=== PATIENT | male | born 1965 | race Caucasian/White ===

== ENCOUNTER → 2018-09-12 08:39 | Day surgery (SDC) | payer BC ==
[~2018-09-12 08:39] MED LIST: Buffered Lidocaine 1% SYRIN* 1 ML/SYRINGE INTRADERM ONE; Bupivacaine 0.25% SDV PF* 10 ML VIAL INJ ONE; Lactated Ringers 1000 ML Bag* 1,000 ML IV SCH; Midazolam* 1 MG/ML 5 ML VIAL (5 MG) ONE; fentaNYL* 50 MCG/ML 2 ML VIAL (100 MCG VIAL) ONE
[2018-09-12 10:56] VITALS: BP 113/88
--- NOTE | 2018-09-12 21:17 | OP ---
DATE OF OPERATION: 09/12/18 - [facility] DATE OF : 65 SURGEON: Stiven Gray MD PEDIATRIC SOCIAL WORKER: JOSIANE Hernandez ANESTHESIOLOGIST: Dr. Aggarwal. ANESTHESIA: Local MAC. PRE-OP DIAGNOSIS: Left long chronic trigger finger and flexor tenosynovitis. POST-OP DIAGNOSIS: Left long chronic trigger finger and flexor tenosynovitis. OPERATIVE PROCEDURE: Left long trigger finger release of A1 shivani with flexor tenosynovectomy. ESTIMATED BLOOD LOSS: 2 mL. COMPLICATIONS: None. FINDINGS: See above and below. DESCRIPTION OF PROCEDURE: Colin was seen in the preoperative holding area. The correct site, side, and procedure were identified. We came back to the operating room where I infiltrated the operative area with 0.25% plain Marcaine. The arm was then prepped and draped in the usual fashion. The arm was exsanguinated with the Esmarch and the tourniquet was inflated to 250 mmHg. I made a 1-cm oblique incision in the distal palmar crease over the left middle finger A1 shivani. Dissection was carried down and full-thickness flaps were bluntly raised off of the flexor tendon sheath. There was some palmar fascial bands that were released. I then incised the A1 shivani along the radial third longitudinally. There was abundant tenosynovitis, this was all excised. Once I had the tendons nice and clean and the A1 shivani completely released, I had was able to flex the finger down and open the hand multiple times. He could make a fist which he had not been able to do for some time and he was able to fully open the hand without any catching. I, therefore did not think we needed to excise the slip of the tendon. We irrigated out the wound. The skin was closed with 4-0 nylon suture. Wounds were dressed with soft dressings. He was taken to the recovery room in stable condition. [id number]/[facility] #: [id number] MTDD
== END | disposition home or self-care (01) ==
LOC: OREAST 08:39
PROVIDERS: ATTEND Orthopaedic Surgery Hand Surgery
DX: M65.332 Trigger finger, left middle finger (principal); Z87.891 Personal history of nicotine dependence
CPT/HCPCS: J2250; J3010; J3490

== ENCOUNTER → 2018-09-30 05:48 | Day surgery (SDC) | payer BC ==
[~2018-09-30 05:48] MED LIST changes: +Acetaminophen TAB* 325 MG PO PRN; -Bupivacaine 0.25% SDV PF* 10 ML VIAL INJ ONE; +DiMENhydriNATE IV* 50 MG/ML VIAL IV PUSH PRN; +Famotidine IV* 10 MG/ML 2 ML (20 mg) IV ONE; +Famotidine IV* 10 MG/ML 2 ML (20 mg) ONE; +Ketorolac INJ* 30 MG/ML 1 ML VIAL ONE; +Lidocaine 2% PF * 5 ML VIAL ONE; +Naloxone* 0.4 MG/ML 1 ML VIAL IV PRN; +Ondansetron INJ* 2 MG/ML VIAL ONE; +Propofol* 10 MG/ML 20 ML BTL ONE; +ROPIVACAINE 5 MG/ML 30 ML BTL (0.5%) ONE; +Ropivacaine* 2 MG/ML 20 ML VIAL (0.2%) ONE; +oxyCODONE TAB* 5 MG TAB PO PRN
[2018-09-30 08:43] VITALS: BP 117/73
--- NOTE | 2018-09-30 09:13 | OP ---
DATE OF OPERATION: 09/30/18 - [facility] DATE OF : 65 SURGEON: Stiven Gray MD TESTER [employer]: JOSIANE Hernandez ANESTHESIOLOGIST: Dr. Romero. ANESTHESIA: Local MAC. PRE-OP DIAGNOSIS: Right chronic middle trigger finger. POST-OP DIAGNOSIS: Right chronic middle trigger finger. OPERATIVE PROCEDURE: Right chronic middle trigger release at the A1 shivani. INDICATIONS: Colin has the aforementioned trigger finger. We had talked about risks and benefits. He had wanted to proceed with surgery. He is doing well with left middle trigger release. ESTIMATED BLOOD LOSS: 1 mL. COMPLICATIONS: None. FINDINGS: See below. DESCRIPTION OF PROCEDURE: Colin was seen in the preoperative holding area. The correct side, site, and procedure were identified. We came back to the operating room and after a time-out, I infiltrated the operative area with 0.5% ropivacaine. The arm was then prepped and draped in the usual fashion and the time-out was performed. The arm was exsanguinated with the Esmarch and the tourniquet inflated to 250 mmHg. I made a 1 cm incision in the distal palmar crease over the middle finger A1 shivani. The full-thickness flaps were raised off the shivani, mostly bluntly. The A1 shivani was then released longitudinally along the radial third. Immediately noted was quite a bit of fraying and degeneration of the FDS tendon. The entirety of the A1 shivani was released as well as the leading edge of the A2 shivani. A full tenosynovectomy was performed and the tendons were cleaned out. I then irrigated out the wound. The skin was closed with 4- 0 nylon. A soft dressing was applied and he was taken to the recovery room in stable condition. Tourniquet was deflated as dressings were being applied. [id number]/[facility] #: [id number] [facility]
== END | disposition home or self-care (01) ==
LOC: OR 05:48
PROVIDERS: ATTEND Orthopaedic Surgery Hand Surgery
DX: M65.331 Trigger finger, right middle finger (principal); I10 Essential (primary) hypertension; J45.909 Unspecified asthma, uncomplicated
CPT/HCPCS: J1885; J2250; J2405; J2704; J2795; J3010

== ENCOUNTER 2019-04-10 05:57 | Day surgery (SDC) | payer OTHER ==
--- NOTE | 2019-04-07 13:06 | HP ---
AMENDED REPORT NOW INCLUDES DESIGNATED COSIGNER AND DATE OF ADMISSION PREOPERATIVE HISTORY AND PHYSICAL: DATE OF ADMISSION: 04/10/19 ATTENDING PROVIDER: Dr. Hillman * (DICTATED BY JOSIANE EVANS) CHIEF COMPLAINT: Right knee pain. HISTORY OF PRESENT ILLNESS: Mr. De La Torre is a 53-year-old male who injured his right knee in 2011, his leg was caught in the ladder during a fall and he suffered a twisting injury to the right knee. Over the years, he has developed intermittent 7/10 sharp pain along the joint line. His pain can be increased on uneven ground when climbing ladders, twisting or pivoting. The knee gives out on him and he has fallen several times related to this. He has locking, clicking and catching of the right knee joint. He has tried anti-inflammatories , home exercise program with biking without release. He works for [employer] and has continued to work throughout the pain. He wished to proceed with right knee arthroscopy. PAST MEDICAL HISTORY: Hypertension and anxiety. PAST SURGICAL HISTORY: Trigger finger release, carpal tunnel release, deviated septum surgery. He denies anesthetic complication with any of these procedures. CURRENT MEDICATIONS: 1. Escitalopram oxalate 10 mg 1 tab by mouth daily. 2. Singulair 10 mg 1 tab daily. 3. Ramipril 5 mg 1 tab daily. ALLERGIES: PENICILLIN and SULFA caused hives. FAMILY HISTORY: Significant for paternal diabetes and no cancer or heart disease. SOCIAL HISTORY: He works as a welder/installer. He lives with his spouse. He denies tobacco or recreational drug use. He does drink 6 alcoholic beverages per week. He is active with biking, weight lifting and golf. REVIEW OF SYSTEMS: He denies headache, lightheadedness, or balance problems. No chest pain with exertion or shortness of breath with exertion. He denies history of DVT or PE. He reports his right knee pain and swelling and otherwise a 14-point review of systems is negative today. PHYSICAL EXAMINATION GENERAL: He is a well-developed, well-nourished male, seated on exam chair, in no acute distress with appropriate affect. VITAL SIGNS: Height 67.5 inches, weight 201, blood pressure 114/70, pulse of 72. HEENT: Normocephalic, atraumatic. Hearing and vision are grossly intact with extraocular movements intact. NECK: The trachea is midline and symmetrical. LUNGS: Clear to auscultation. No wheezes, rales, or rhonchi appreciated. HEART: Regular rate and rhythm. Normal S1, S2. No murmurs, rubs, or gallops noted. ABDOMEN: Nondistended. Soft and nontender. Bowel sounds present. GENITOURINARY: Deferred. MUSCULOSKELETAL: Right lower extremity: Skin is pink, dry, and intact with no abrasions or open wounds. There is moderate effusion of the right knee with tenderness to palpation along the medial and lateral joint lines. He extends the knee to 5, flexes to 120 with severe pain. No varus or valgus instability. Negative Therese's with guarding. No distal edema. Full active range of motion of 4 planes of the right ankle with intact sensation and 2+ dorsalis pedis pulse. IMAGING: Multiple views of the right knee show mild degenerative changes with no obvious bony abnormalities. ASSESSMENT: Right knee meniscus tear. PLAN: Right knee arthroscopy, partial meniscectomy, possible chondroplasty, synovectomy, and plica excision with Dr. Hillman. The patient's questions were answered and he would like to proceed. Pain medication will be prescribed postoperatively. He will follow up in our clinic 10 to 14 days after procedure. JOSIANE EVANS [id number]/[facility] #: [id number] MTDBecca
[~2019-04-10 05:57] MED LIST changes: -Acetaminophen TAB* 325 MG PO PRN; -DiMENhydriNATE IV* 50 MG/ML VIAL IV PUSH PRN; -Famotidine IV* 10 MG/ML 2 ML (20 mg) IV ONE; +Gabapentin CAP(*) 300 MG ONE; -Ketorolac INJ* 30 MG/ML 1 ML VIAL ONE; -Lactated Ringers 1000 ML Bag* 1,000 ML IV SCH; +Levalbuterol 0.63MG/3ML NEB* UNIT OF USE INH ONE; -Lidocaine 2% PF * 5 ML VIAL ONE; -Midazolam* 1 MG/ML 5 ML VIAL (5 MG) ONE; -Naloxone* 0.4 MG/ML 1 ML VIAL IV PRN; -Ondansetron INJ* 2 MG/ML VIAL ONE; -Propofol* 10 MG/ML 20 ML BTL ONE; -ROPIVACAINE 5 MG/ML 30 ML BTL (0.5%) ONE; -Ropivacaine* 2 MG/ML 20 ML VIAL (0.2%) ONE; -fentaNYL* 50 MCG/ML 2 ML VIAL (100 MCG VIAL) ONE; -oxyCODONE TAB* 5 MG TAB PO PRN
[2019-04-10] MEDS ORDERED: Dexamethasone IV* 4 MG/ML 1 ML (4 MG) IV SLOW PU ONE (06:00)
[2019-04-10] MEDS ORDERED: Lactated Ringers 1000 ML Bag* 1,000 ML IV SCH (06:00)
[2019-04-10] MEDS ORDERED: Famotidine IV* 10 MG/ML 2 ML (20 mg) IV ONE (06:00)
[2019-04-10] MEDS ORDERED: EPINEPHRINE 1 MG/ML 1 ML VIAL ONE (06:40)
[2019-04-10] MEDS ORDERED: methylPREDNISolone ACETATE 80* 80 MG/ML 1 ML VIAL ONE (06:40)
[2019-04-10] MEDS ORDERED: Bupivacaine 0.5%* 50 ML MDV VIAL ONE (06:40)
[2019-04-10] MEDS ORDERED: fentaNYL* 50 MCG/ML 2 ML VIAL (100 MCG VIAL) ONE ×2 (07:03→08:25)
[2019-04-10] MEDS ORDERED: Midazolam* 1 MG/ML 2 ML VIAL (2 MG) ONE (07:03)
[2019-04-10] MEDS ORDERED: Lidocaine 2% PF * 5 ML VIAL ONE (07:04)
[2019-04-10] MEDS ORDERED: Propofol* 10 MG/ML 20 ML BTL ONE (07:04)
[2019-04-10] MEDS ORDERED: Ketorolac INJ* 30 MG/ML 1 ML VIAL ONE (07:04)
[2019-04-10] MEDS ORDERED: Ondansetron INJ* 2 MG/ML VIAL ONE (07:04)
[2019-04-10] MEDS ORDERED: Dexamethasone IV* 4 MG/ML 1 ML (4 MG) ONE (07:10)
[2019-04-10] MEDS ORDERED: Famotidine IV* 10 MG/ML 2 ML (20 mg) ONE (07:11)
[2019-04-10] MEDS ORDERED: Buffered Lidocaine 1% SYRIN* 1 ML/SYRINGE INTRADERM ONE (07:11)
[2019-04-10] MEDS ORDERED: Clindamycin 900 MG IVPREMIX(* 900 MG/50 ML SDV IV ONE (07:15)
[2019-04-10] MEDS ORDERED: EPHEDrine (Pressors)* 50 MG/ML VIAL ONE (07:43)
[2019-04-10] MEDS ORDERED: fentaNYL* 50 MCG/ML 2 ML VIAL (100 MCG VIAL) IV PRN (08:04)
[2019-04-10] MEDS ORDERED: DiMENhydriNATE IV* 50 MG/ML VIAL IV PUSH PRN (08:04)
[2019-04-10] MEDS ORDERED: Naloxone* 0.4 MG/ML 1 ML VIAL IV PRN (08:04)
[2019-04-10 09:43] VITALS: BP 131/73
--- NOTE | 2019-04-11 00:49 | OP ---
DATE OF OPERATION: 04/10/19 - [facility] DATE OF : 65 ATTENDING SURGEON: Fransisca Hillman MD ANESTHESIOLOGIST: Dr. Garner. ANESTHESIA: General. PRE-OP DIAGNOSIS: Right knee medial and lateral meniscal tear. POST-OP DIAGNOSES: Right knee medial and lateral meniscal tear, anterior synovitis, mild to moderate arthritic changes. OPERATIVE PROCEDURE: Right knee arthroscopy with partial medial meniscectomy, partial lateral meniscectomy, anterior synovectomy. ESTIMATED BLOOD LOSS: Less than 25 cc. COMPLICATIONS: None. SPECIMEN: None. BRIEF HISTORY/INDICATION: Mr. De La Torre is a 53-year-old gentleman who is out on [employer] injury since 2011 when he fell off a ladder, twisting the knee. He reports that in June 2018, he had a second fall. Since that time , he has had mechanical symptoms and severe pain along the lateral joint line. He was eventually unable to work because of the feelings of instability and locking along the lateral joint line. We obtained an MRI which confirmed medial and lateral meniscal tears. Due to continued pain and failure of conservative treatments, the patient elected to undergo right knee arthroscopy with partial meniscectomy, possible chondroplasty, possible synovectomy, possible plica excision. Informed consent was obtained from the patient. She understood the risks of surgery included, but were not limited to bleeding, infection, damage to nearby structures, continued pain, need for further surgery , retear of the meniscus, progression of arthritis, stroke, heart attack, blood clot, and . He wished to proceed. INTRAOPERATIVE FINDINGS: Intraoperatively, the patient was noted to have a small radial tear along the anterior medial meniscus. He had a large displaced parrot beak type tear involving the majority of the lateral meniscus body. He had some mild to moderate arthritic changes in both the lateral and patellofemoral compartments. He had a significant amount of anterior synovitis. DESCRIPTION OF PROCEDURE: The patient was identified in the preanesthesia unit. His right lower extremity was marked as the correct operative site. Informed consent was signed and placed in the chart. The patient was taken to the operating room and placed under general anesthesia without difficulty. His right lower extremity was prepped and draped in usual sterile fashion. Preop time-out was made to correctly identify the patient, side, and site. Appropriate perioperative antibiotics were given within 1 hour of incision. A standard anterolateral portal incision was made with a 10-blade and carried down through the capsule. Trocar was introduced. As soon as the light and water sources were turned on, there was immediate visualization of the suprapatellar pouch. A tour of the knee joint was performed. There were no abnormalities in the suprapatellar pouch. Patellofemoral compartment had some minimal grade 2 and 3 Outerbridge cartilage changes. There was some cartilage fissuring and fraying. No areas with explosive chondral bone. The medial gutter showed no loose body or plica. Anterior joint line had a significant amount of synovitis. Medial compartment showed no significant degenerative changes. There was a radial tear along the anterior medial meniscus. ACL and PCL appeared to be intact. The knee was placed in the [id number] position. There were grade 2 and 3 Outerbridge cartilage changes with some cartilage fraying. There was a large parrot beak type tear with displacement of the lateral meniscus. This involved the majority of the body of meniscus. Lateral gutter showed no loose body or plica. Under direct visualization, a medial portal incision was made. A probe was introduced and a separate tour of the knee joint was performed. There were no additional findings noted. Shaver and radiofrequency ablation wand were used to perform anterior synovectomy. Next, straight biter and shaver were used to perform partial medial meniscectomy. The radial tear was debrided and excised in the white- red zone. This is the anterior portion of the medial meniscus. Further probing of the medial meniscus showed no additional tear. The knee was placed in a [id number] position. Probe was used to fully displace the large parrot beak type tear of the lateral meniscus body into the joint space. Straight biter and shaver were used to perform partial lateral meniscectomy. This was in the white-red and red-red zone. Smooth border of the meniscus was obtained. Further probing of the meniscus showed no additional tears. The knee was copiously irrigated with sterile saline. All instruments were removed. The incisions were closed with 3-0 nylon suture. Intraarticular injection of 80 mg Depo-Medrol and 6 cc of 0.5% ropivacaine was placed in the knee joint. The patient's incisions were covered with Xeroform, 4x4s, and Webril. Nish wrap and cold pack were placed over this. The patient's anesthesia was reversed without difficulty. He was taken to the PACU in stable condition. Intended weightbearing will be weightbearing as tolerated. Intended DVT prophylaxis will be aspirin. He will follow up in 2 weeks' time for suture removal. [id number]/[facility] #: [id number] [place]
== END 2019-04-10 09:45 | disposition home or self-care (01) ==
LOC: OR 05:57
PROVIDERS: ATTEND Orthopaedic Surgery Adult Reconstructive Orthopaedic Surgery
DX: S83.241A Other tear of medial meniscus, current injury, right knee, initial encounter (principal); S83.281A Other tear of lateral meniscus, current injury, right knee, initial encounter; M17.11 Unilateral primary osteoarthritis, right knee; I10 Essential (primary) hypertension; Z88.0 Allergy status to penicillin; Z88.2 Allergy status to sulfonamides; M65.9 Synovitis and tenosynovitis, unspecified; W11.XXXA Fall on and from ladder, initial encounter; Y93.89 Activity, other specified; Y92.017 Garden or yard in single-family (private) house as the place of occurrence of the external cause
CPT/HCPCS: A9270-GY; J1040; J1100; J1885; J2250; J2405; J2704; J3010; J3490

== ENCOUNTER 2022-02-02 08:58 | Inpatient (IN) ==
[2022-02-02] MEDS ORDERED: Senna TAB 8.6 mg TAB PO PRN (11:58)
[2022-02-02] MEDS ORDERED: Magnesium Hydroxide LIQ 30 ML UDC PO PRN (11:58)
[2022-02-02] MEDS: Enoxaparin 30 MG/0.3 ML SYR SUBCUT SCH (21:17)
[2022-02-03 05:14] LABS: ABS Eosinophils 0.1 10^3/ul (0-0.6); ABS Lymphocytes 0.7 10^3/ul (1.0-4.8); ABS Monocytes 0.6 10^3/ul (0-0.8); ABS Neutrophils 4.7 10^3/ul (1.5-7.7); Eosinophil % 1.6 %; Hematocrit 26 % (42-52); Hemoglobin 8.6 g/dL (14.0-18.0); Lymphocyte % 10.8 %; Mean Corpuscular HGB Conc 33 g/dL (31-36); Mean Corpuscular Hemoglobin 30 pg (27-31); Mean Corpuscular Volume 90 fL (80-94); Mean Platelet Volume 6.1 fL (7.4-10.4); Platelet Count 584 10^3/uL (150-450); Red Blood Count 2.89 10^6 /uL (4.18-5.48); Red Cell Distribution Width 13 % (10-15); White Blood Count 6.1 10^3/uL (3.5-10.8)
[2022-02-03 05:52] LABS: Albumin 3.3 g/dL (3.2-5.2); Albumin/Globulin Ratio 1.3 (1-3); Globulin 2.6 g/dL (2-4); Potassium 4.7 mmol/L (3.5-5.0); Total Bilirubin 0.5 mg/dL (0.2-1.0); Total Protein 5.9 g/dL (6.4-8.9); eGFR CKD-EPI 103.9 (>60)
[2022-02-03] MEDS: Enoxaparin 30 MG/0.3 ML SYR SUBCUT SCH ×2 (08:47→20:31)
[2022-02-04] MEDS: Enoxaparin 30 MG/0.3 ML SYR SUBCUT SCH ×2 (07:16→20:32)
[2022-02-04] MEDS: Senna TAB 8.6 mg TAB PO SCH (20:31)
[2022-02-04] MEDS ORDERED: oxyCODONE SR 15 mg TAB PO SCH (21:00)
[2022-02-05] MEDS: Enoxaparin 30 MG/0.3 ML SYR SUBCUT SCH ×2 (07:35→20:16)
[2022-02-05] MEDS ORDERED: oxyCODONE SR 15 mg TAB PO ONE (10:30)
[2022-02-05] MEDS: Senna TAB 8.6 mg TAB PO SCH (20:16)
[2022-02-05] MEDS: oxyCODONE SR 15 mg TAB PO SCH (20:16)
[2022-02-06] MEDS: Enoxaparin 30 MG/0.3 ML SYR SUBCUT SCH ×2 (08:02→20:45)
[2022-02-06] MEDS: oxyCODONE SR 15 mg TAB PO SCH ×2 (08:02→20:46)
[2022-02-06] MEDS: Senna TAB 8.6 mg TAB PO SCH (20:46)
[2022-02-07] MEDS: Enoxaparin 30 MG/0.3 ML SYR SUBCUT SCH ×2 (08:01→21:01)
[2022-02-07] MEDS: oxyCODONE SR 15 mg TAB PO SCH ×2 (08:02→21:02)
[2022-02-07] MEDS: Senna TAB 8.6 mg TAB PO SCH (21:02)
[2022-02-08] MEDS: oxyCODONE SR 15 mg TAB PO SCH ×2 (08:12→21:01)
[2022-02-08] MEDS: Enoxaparin 30 MG/0.3 ML SYR SUBCUT SCH ×2 (08:14→21:02)
[2022-02-08] MEDS: Senna TAB 8.6 mg TAB PO SCH (21:00)
[2022-02-09] MEDS: oxyCODONE SR 15 mg TAB PO SCH ×2 (08:00→20:47)
[2022-02-09] MEDS: Enoxaparin 30 MG/0.3 ML SYR SUBCUT SCH ×2 (08:00→20:47)
[2022-02-09] MEDS: Senna TAB 8.6 mg TAB PO SCH (20:46)
[2022-02-10 05:03] LABS: ABS Eosinophils 0.1 10^3/ul (0-0.6); ABS Lymphocytes 0.9 10^3/ul (1.0-4.8); ABS Monocytes 0.6 10^3/ul (0-0.8); ABS Neutrophils 2.9 10^3/ul (1.5-7.7); Eosinophil % 1.8 %; Hematocrit 28 % (42-52); Hemoglobin 9.3 g/dL (14.0-18.0); Lymphocyte % 19.5 %; Mean Corpuscular HGB Conc 34 g/dL (31-36); Mean Corpuscular Hemoglobin 30 pg (27-31); Mean Corpuscular Volume 89 fL (80-94); Platelet Count 504 10^3/uL (150-450); Red Cell Distribution Width 13 % (10-15); White Blood Count 4.5 10^3/uL (3.5-10.8)
[2022-02-10 05:48] VITALS: BP 128/72
[2022-02-10 05:56] LABS: Albumin 3.5 g/dL (3.2-5.2); Albumin/Globulin Ratio 1.3 (1-3); Calcium 9.1 mg/dL (8.6-10.3); Globulin 2.6 g/dL (2-4); Potassium 4.6 mmol/L (3.5-5.0); Total Bilirubin 0.4 mg/dL (0.2-1.0); Total Protein 6.1 g/dL (6.4-8.9); eGFR CKD-EPI 96.4 (>60)
[2022-02-10] MEDS: oxyCODONE SR 15 mg TAB PO SCH (07:25)
[2022-02-10] MEDS: Enoxaparin 30 MG/0.3 ML SYR SUBCUT SCH (07:26)
== END 2022-02-10 14:00 | disposition home health service (06) | DRG 860 ==
LOC: PMRU 11:50
PROVIDERS: ADMIT Physical Medicine & Rehabilitation; ATTEND Physical Medicine & Rehabilitation

== ENCOUNTER 2022-05-17 18:02 | Inpatient (IN) ==
[2022-05-17] MEDS ORDERED: Morphine PF AMP (1 MG/ML) 10 MG/10 ML AMP IM ONE (18:37)
[2022-05-17] MEDS ORDERED: Morphine 10 MG/ML VIAL (1 ml) IM ONE (18:38)
[2022-05-17] MEDS ORDERED: NS 0.9% 1000 ml BAG 1,000 ML IV ONE ×2 (18:49→18:54)
[2022-05-17] MEDS ORDERED: HYDROmorphone 1 MG/1 ML SYRINGE IV ONE (18:54)
[2022-05-17 19:19] LABS: ABS Monocytes 0.4 10^3/ul (0-0.8); ABS Neutrophils 4.7 10^3/ul (1.5-7.7); Eosinophil % 0.5 %; Hematocrit 38 % (42-52); Hemoglobin 12.4 g/dL (14.0-18.0); Lymphocyte % 16.6 %; Mean Corpuscular HGB Conc 32 g/dL (31-36); Mean Corpuscular Hemoglobin 28 pg (27-31); Mean Corpuscular Volume 85 fL (80-94); Mean Platelet Volume 6.8 fL (7.4-10.4); Nucleated Red Blood Cells % 0.1; Platelet Count 264 10^3/uL (150-450); Red Cell Distribution Width 15 % (10-15); White Blood Count 6.2 10^3/uL (3.5-10.8)
[2022-05-17] MEDS ORDERED: HYDROmorphone 0.5 MG/0.5 ML SYRINGE IV ONE ×2 (19:36→20:42)
[2022-05-17 19:56] LABS: Albumin 3.8 g/dL (3.2-5.2); Albumin/Globulin Ratio 1.7 (1-3); Calcium 8.3 mg/dL (8.6-10.3); Globulin 2.3 g/dL (2-4); Magnesium 1.8 mg/dL (1.9-2.7); Total Bilirubin 0.2 mg/dL (0.2-1.0); Total Protein 6.1 g/dL (6.4-8.9)
[2022-05-17] MEDS ORDERED: Bacitracin OINTMENT TUBE TOPICAL ONE ×2 (20:21→20:27)
[2022-05-17] MEDS ORDERED: Tetan/Diph/Pertus SYR(Tdap) 0.5 ML SYR(BOOSTRIX) use SYR contains LATEX IM ONE (21:38)
[2022-05-18 06:27] LABS: ABS Eosinophils 0.1 10^3/ul (0-0.6); ABS Lymphocytes 1.5 10^3/ul (1.0-4.8); ABS Monocytes 0.5 10^3/ul (0-0.8); ABS Neutrophils 3.3 10^3/ul (1.5-7.7); Eosinophil % 1.1 %; Hematocrit 38 % (42-52); Hemoglobin 12.1 g/dL (14.0-18.0); Lymphocyte % 27.7 %; Mean Corpuscular HGB Conc 32 g/dL (31-36); Mean Corpuscular Hemoglobin 27 pg (27-31); Mean Corpuscular Volume 85 fL (80-94); Mean Platelet Volume 6.9 fL (7.4-10.4); Platelet Count 251 10^3/uL (150-450); Red Blood Count 4.43 10^6 /uL (4.18-5.48); Red Cell Distribution Width 16 % (10-15); White Blood Count 5.3 10^3/uL (3.5-10.8)
[2022-05-18 07:18] LABS: Calcium 8.5 mg/dL (8.6-10.3); Magnesium 1.9 mg/dL (1.9-2.7); Potassium 4.2 mmol/L (3.5-5.0); eGFR CKD-EPI 100.9 (>60)
[2022-05-18] MEDS ORDERED: DULoxetine DR 30 mg CAP PO SCH (09:00)
[2022-05-18] MEDS ORDERED: Silver Sulfadiazine 1% 400gm JAR TOPICAL SCH (12:14)
[2022-05-18] MEDS ORDERED: NS 0.9% 1000 ml BAG 1,000 ML IV SCH (12:15)
[2022-05-18 15:08] VITALS: BP 143/76
== END 2022-05-18 17:05 | disposition home or self-care (01) | DRG 933 ==
LOC: ED 18:02 → EDHOLD 23:23 → MED 05-18 13:07
PROVIDERS: ADMIT Student in an Organized Health Care Education/Training Program; ATTEND Student in an Organized Health Care Education/Training Program